=== PATIENT | male | born 1995 | race Caucasian/White ===

== ENCOUNTER 2016-09-02 14:46 | Emergency (ER) | payer OTHER ==
[~2016-09-02] VITALS: Ht 185.4 cm; Wt 87.7 kg
[2016-09-02 15:11] VITALS: BP 129/81
--- NOTE | 2016-09-02 18:24 | NUR ---
PATIENT PRESENTS TO ED WITH C/O SHARP LOWER BACK PAIN X 3 DAYS---ADDS IF SEATED A CERTAIN WAY BLE BECOME NUMB, DENIES DYSURIA, DENIES INCONTINENCE; AMBULATORY WITH STEADY GAIT;HX OF SPASTIC COLON, DEPRESSION;RX OF DULOXETINE, ADDERALL, KLONOPIN, NORCO, BENTYL, REGLAN, PREVACID .PT STATES HE FELL IN HIS BUTTOCKS WHEN HE WAS 15 Y/O; NO TRAUMA NOTED;REDNESS OR SWELLING NOTED. DENIES N/V/D; SKIN IS PINK/WARM/DRY; AAOX4 WITH EVEN AND STEADY GAIT; LUNGS CLEAR BL; HR EVEN AND REGULAR; PT DENIES ANY FEVER, CP, SOB, OR COUGH AT THIS TIME; PATIENT STATES PAIN OF 10/10 AT THIS TIME; VSS; PATIENT POSITIONED FOR COMFORT; HOB ELEVATED; BEDRAILS UP X2; BED DOWN. ER MD WILL BE NOTIFIED.
--- NOTE | 2016-09-02 18:39 | NUR ---
PT POSITIONED SELF IN PRONE ;PT STATES PAIN IS INCREASE IF PRESSURE IS APPLIED TO BUTTOCKS.NO ACUTE DISTRESS NOTED;WILL CONTINUE TO MONITOR PT.
--- NOTE | 2016-09-02 19:15 | NUR ---
Pt report given to DAXA KENNEY. Transfer of care at this time.
--- NOTE | 2016-09-02 19:16 | NUR ---
RECEIVED REPORT FROM DAXA COFFMAN. PT AWAKE, ALERT, ORIENTED. PT RESTING COMFORTABLY ON BED, PRONE POSITION DUE TO PAIN AT THE BUTTOCKS. WILL CONTINUE TO MONITOR.
--- NOTE | 2016-09-02 19:36 | NUR ---
Dr. Corona evaluating patient at bedside.
[2016-09-02] MEDS ORDERED: KETOROLAC 60 MG/2 ML VIAL IM ONE (19:40)
[2016-09-02 20:13] VITALS: BP 128/75
--- NOTE | 2016-09-02 20:13 | NUR ---
Patient discharged with v/s stable. Written and verbal after care instructions given and explained. Patient alert, oriented and verbalized understanding of instructions. Ambulatory with steady gait. All questions addressed prior to discharge. ID band removed. Patient advised to follow up with PMD. Rx of MOTRIN 800MG, NORCO 5MG-325MG given. Patient educated on indication of medication including possible reaction and side effects. Opportunity to ask questions provided and answered.
== END 2016-09-02 20:13 | disposition home or self-care (01) ==
LOC: MED 14:46
DX: M54.5 Low back pain (principal); Z88.6 Allergy status to analgesic agent; F17.200 Nicotine dependence, unspecified, uncomplicated
CPT/HCPCS: 96372; 99283; J1885